=== PATIENT | female | born 1980 | race Caucasian/White ===

== ENCOUNTER 2016-08-06 23:35 | Emergency (ER) | payer BC ==
[2016-08-07] MEDS ORDERED: KETOROLAC TROMETHAMINE 60 MG/2 ML SDV IM ONE (00:17)
[2016-08-07] MEDS ORDERED: DIAZEPAM INJ 10 MG/2 ML DISP.SYRIN IM ONE (00:17)
--- NOTE | 2016-08-07 00:17 | ER Document Report ---
ED Extremity Problem, Upper - General Chief Complaint: Shoulder Pain Stated Complaint: RIGHT SHOULDER PAIN DOWN ARM Time seen by provider: 00:17 Mode of Arrival: Ambulatory Information source: Patient TRAVEL OUTSIDE OF THE [place] IN LAST 30 DAYS: No - HPI Patient complains to provider of: Pain, Right, Shoulder Onset: Last week Recent injury: No Where: Home Quality of pain: Achy Severity of pain: Moderate Pain Level: 4 Associated symptoms: Neck pain, Tingling Exacerbated by: Movement Relieved by: Nothing Similar symptoms previously: Yes Recently seen / treated by doctor: Yes Notes: Patient is a 35-year-old female presenting to the emergency room complaining of pain to her right neck and shoulder this been going on for the past week, she reports that she woke up on Monday morning, taking that maybe she slept in an incorrect position causing her symptoms, she had pain from the right cervical area with tingling sensation radiating down the right arm, she saw her primary care provider on Monday who administered an injection of lidocaine, Marcaine and dexamethasone, and told patient to take ibuprofen, patient reports that her symptoms have worsened over the past few days, and she has had decreased sleep because of it, history of similar symptoms back in November, when she was prescribed muscle relaxers which helped at that time but are not helping this time either, patient denies any chest pain or shortness of breath, no injury or trauma - Related Data Allergies/Adverse Reactions: promethazine [From Phenergan] Allergy (Verified 08/06/16 23:44) Past Medical History - General Information source: Patient - Social History Smoking Status: Never Smoker Chew tobacco use (# tins/day): No Frequency of alcohol use: Occasional Drug Abuse: None Family History: None Patient has suicidal ideation: No Patient has homicidal ideation: No Renal/ Medical History: Denies: Hx Peritoneal Dialysis Review of Systems - Review of Systems Constitutional: No symptoms reported EENT: No symptoms reported Cardiovascular: No symptoms reported Respiratory: No symptoms reported Gastrointestinal: No symptoms reported Genitourinary: No symptoms reported Female Genitourinary: No symptoms reported Musculoskeletal: See HPI Skin: No symptoms reported Hematologic/Lymphatic: No symptoms reported Neurological/Psychological: No symptoms reported -: Yes All other systems reviewed and negative Physical Exam - Vital signs Vitals: Temp Pulse Resp BP Pulse Ox 97.5 F 75 16 137/100 H 97 08/06/16 23:38 08/06/16 23:38 08/06/16 23:38 08/06/16 23:38 08/06/16 23:38 Interpretation: Normal - General General appearance: Appears well, Alert - HEENT Head: Normocephalic, Atraumatic Eyes: Normal Conjunctiva: Normal Extraocular movements intact: Yes Eyelashes: Normal Pupils: PERRL Neck: Other - Tenderness to palpate in right paraspinal musculature down into the trapezius muscle, pain with side bending the left - Respiratory Respiratory status: No respiratory distress Chest status: Nontender Breath sounds: Normal Chest palpation: Normal - Cardiovascular Rhythm: Regular Heart sounds: Normal auscultation Murmur: No - Abdominal Inspection: Normal Distension: No distension Bowel sounds: Normal Tenderness: Nontender Organomegaly: No organomegaly - Back Back: Normal, Nontender - Extremities General upper extremity: Normal color, Normal temperature General lower extremity: Normal inspection, Normal color, Normal ROM, Normal temperature, Normal weight bearing. No: Radha's sign Shoulder: Tender - Tender to palpate in soft tissue of the right shoulder anteriorly, distal sensation and motor is intact with 2+ radial pulses and brisk capillary refill, although patient does report a tingling sensation shooting down the arm - Neurological Neuro grossly intact: Yes Cognition: Normal Orientation: AAOx4 [place] Coma Scale Eye Opening: Spontaneous [place] Coma Scale Verbal: Oriented [place] Coma Scale Motor: Obeys Commands [place] Coma Scale Total: 15 Speech: Normal Motor strength normal: LUE, RUE, LLE, RLE Sensory: Normal - Psychological Associated symptoms: Normal affect, Normal mood - Skin Skin Temperature: Warm Skin Moisture: Dry Skin Color: Normal Course - Re-evaluation Re-evalutation: 08/07/16 01:25 Patient reports feeling some relief of symptoms after receiving injections in the ER, imaging findings were discussed with patient at bedside, she will be provided with additional pain medication for home use, and advised to follow-up with her primary care provider in the next 1-2 days for further evaluation and treatment, patient and family member at bedside acknowledge understanding and agreement with this plan - Vital Signs Vital signs: Temp Pulse Resp BP Pulse Ox 97.5 F 75 16 137/100 H 97 08/06/16 23:38 08/06/16 23:38 08/06/16 23:38 08/06/16 23:38 08/06/16 23:38 - Diagnostic Test Radiology reviewed: Image reviewed, Reports reviewed Discharge - Discharge Clinical Impression: Right arm pain Condition: Stable Disposition: HOME, SELF-CARE Instructions: Arm Pain, Nonspecific ([facility]), Neuropathy ([facility]), Ice Packs ([facility]) Additional Instructions: Follow up with your primary care provider in one to 2 days. Return to the emergency room immediately if symptoms worsen or any additional concerns. Prescriptions: Diazepam [Valium 5 mg Tablet] 5 mg PO QIDP PRN #15 tablet PRN Reason:
[2016-08-07] MEDS ORDERED: HYDROCODONE/ACETAMINOPHEN 5-325 MG 6 TAB/DSPK PO PRN (01:25)
[2016-08-07 02:07] VITALS: BP 127/70
== END 2016-08-07 01:35 | disposition home or self-care (01) ==
LOC: ER 23:35
DX: M25.511 Pain in right shoulder (principal); M54.2 Cervicalgia; R20.2 Paresthesia of skin
CPT/HCPCS: 99283; 96372; 72050; 73030; J3360; J1885